=== PATIENT | male | born 1995 | race Caucasian/White ===

== ENCOUNTER 2019-12-24 11:12 | Emergency (ER) | payer BC, OTHER ==
[2019-12-24] MEDS ORDERED: NA CHLORIDE 0.9% 1,000 ML ONE (12:06)
--- OUTSIDE RECORDS SUMMARY | 2019-12-24 16:23 | XMS REPORT | Clinical Summary ---
:1995 Author Organization [facility] Address [address] [place] [address] Care Team Providers Name Role Phone Asked, No Pcp Primary Care Provider Unavailable Allergies Active Allergy Reactions Severity Noted Date Comments Sulfa (Sulfonamide Antibiotics) 7 Medications No known medications Active Problems Problem Noted Date Cervical strain, acute 07/01/2016 Family History Medical History Relation Name Comments Hypertension Father Heart disease Mother Hypertension Mother Relation Name Status Comments Father Mother Social History Tobacco Use Types Packs/Day Years Used Date Never Smoker Tobacco Cessation: Counseling Given: No Alcohol Use Drinks/Week oz/Week Comments No Sex Assigned at Date Recorded Not on file Job Start Date Occupation Industry Not on file Not on file Not on file Travel History Travel Start Travel End No recent travel history available. Last Filed Vital Signs Not on file Plan of Treatment Health Maintenance Due Date Last Done Comments INFLUENZA VACCINE 12/15/2019 Results Not on fileafter 12/23/2018 Advance Directives For more information, please contact: [phone] Type Date Recorded Patient Pick Remover Explanati on Advance Directives, Living Will and Medical Power of Associate Account Manager
--- NOTE | 2019-12-24 16:24 | RAD REPORT ---
EXAM DESCRIPTION: RAD - Chest Pa And Lat (2 Views) - 12/24/2019 2:36 pm CLINICAL HISTORY: Chest pain, abdominal pain and vomiting COMPARISON: Two view chest September 2015 TECHNIQUE: Frontal and lateral views of the chest were obtained. FINDINGS: The lungs are clear. Heart size is normal and central vasculature is within normal limit s. No pleural effusion or pneumothorax seen. No acute bony finding noted. No aortic abnormality. No significant interval change. IMPRESSION: No acute cardiopulmonary process.
[2019-12-24 20:39] LABS: Potassium 4.2 mmol/L (3.5-5.1); Sodium Level 144 mmol/L (136-145)
[2019-12-24 20:40] LABS: ALT/SGPT 29 U/L (12-78); AST/SGOT 11 U/L (15-37); Albumin 4.4 g/dL (3.4-5.0); Alkaline Phosphatase 92 U/L (45-117); BUN Blood Urea Nitrogen 11 mg/dL (7-18); Bicarbonate 28 mmol/L (21-32); Bilirubin Direct 0.2 mg/dL (0-0.2); Bilirubin Total 0.6 mg/dL (0.2-1.0); Glucose Level 94 mg/dL (74-106); Protein, Total 7.9 g/dL (6.4-8.2)
[2019-12-24 20:41] LABS: Lipase 64 U/L (73-393)
[2019-12-24 20:42] LABS: Absolute Lymphocytes (CBC) 1.2 K/uL (0.7-4.9); Basophils % 0.4 % (0-1.3); Hematocrit 43.9 % (39.6-49.0); Lymphocytes % 21.9 % (15.3-44.8); MPV 11.2 fL (7.6-11.3); RBC Red Blood Cell Count 4.85 M/uL (4.33-5.43)
--- NOTE | 2019-12-25 07:28 | EDPHYS ---
Physician Documentation [facility] Name: Jairo eNwman Age: 24 yrs Sex: Male : 1995 Arrival Date: 12/24/2019 Time: 11:16 Bed 20 Private MD: ED Physician Daryl Chandler HPI: 12/23 11:40 This 24 yrs old Male presents to ER via Ambulatory with complaints of pm1 Vomiting, RUQ Pain, Shortness Of Breath. 11:40 The patient presents to the emergency department with vomiting, 1 times since the onset pm1 of symptoms, 1 times today, described as blood streaked, abdominal pain, of the right upper quadrant, described as crampy, and does not radiate. Onset: The symptoms/episode began/occurred 2 week(s) ago. Possible causes: unknown. The symptoms are aggravated by Exercise The symptoms are alleviated by Rest. Associated signs and symptoms: Pertinent positives: abdominal pain, Pertinent negatives: fever, Chest pain. Severity of symptoms: in the emergency department the symptoms have resolved Pain is currently a 0 / 10. The patient has not recently seen a physician. Patient has been working out with running and walking at when he is running at the 2 mile magy he gets RUQ pain with shortness of breath. This has been occurring for the past 2 weeks with his work outs daily. Patient currently does not have any shortness of breath or pain. What brought him in today is he was playing basketball and had 1 episode of vomiting with some streak of blood in it. Historical: - Allergies: 11:28 Sulfa (Sulfonamide Antibiotics); ll1 - PMHx: 11:28 Asthma; ll1 - PSHx: 11:28 shoulder surgery, spinal injections; EGD/colonoscopy; ll1 - Immunization history:: Flu vaccine is up to date. - Social history:: Smoking status: Patient denies any tobacco usage or history of. Patient/guardian denies using alcohol, street drugs, tobacco products. ROS: 11:40 Constitutional: Negative for fever, chills, and weight loss, Neck: Negative for injury, pm1 pain, and swelling, Cardiovascular: Negative for chest pain, palpitations, and edema. 11:40 Back: Negative for injury and pain, : Negative for injury, bleeding, discharge, and swelling, MS/Extremity: Negative for injury and deformity, Skin: Negative for injury, rash, and discoloration, Neuro: Negative for headache, weakness, numbness, tingling, and seizure. 11:40 Respiratory: Positive for shortness of breath, Negative for cough, sputum production, wheezing. 11:40 Abdomen/GI: Positive for abdominal pain, nausea and vomiting, of the right upper quadrant, Negative for diarrhea, constipation. Exam: 11:40 Constitutional: This is a well developed, well nourished patient who is awake, alert, pm1 and in no acute distress. Head/Face: Normocephalic, atraumatic. Neck: Trachea midline, no thyromegaly or masses palpated, and no cervical lymphadenopathy. Supple, full range of motion without nuchal rigidity, or vertebral point tenderness. No Meningismus. Cardiovascular: Regular rate and rhythm with a normal S1 and S2. No gallops, murmurs, or rubs. Normal PMI, no JVD. No pulse deficits. Respiratory: Lungs have equal breath sounds bilaterally, clear to auscultation and percussion. No rales, rhonchi or wheezes noted. No increased work of breathing, no retractions or nasal flaring. 11:40 Back: No spinal tenderness. No costovertebral tenderness. Full range of motion. Skin: Warm, dry with normal turgor. Normal color with no rashes, no lesions, and no evidence of cellulitis. MS/ Extremity: Pulses equal, no cyanosis. Neurovascular intact. Full, normal range of motion. 11:40 Abdomen/GI: Inspection: abdomen appears normal, Palpation: soft, in all quadrants, mild abdominal tenderness, in the right upper quadrant, mass, is not appreciated, rebound tenderness, is not appreciated. 11:40 Neuro: Exam negative for acute changes, Orientation: is normal, Mentation: is normal, Motor: is normal, moves all fours, Gait: is steady, at a normal pace, without difficulty. Vital Signs: 11:24 BP 134 / 92; Pulse 64; Resp 17; Temp 98.5; Pulse Ox 96% ; Weight 99.79 kg; Height 5 ft. ll1 11 in. (180.34 cm); Pain 2/10; 12:02 BP 122 / 71; Pulse 55; Resp 18; Pulse Ox 98% ; Pain 0/10; ks7 13:18 BP 128 / 75; Pulse 62; Resp 18; Temp 98.3(O); Pulse Ox 98% on R/A; Pain 0/10; ks7 11:24 Body Mass Index 30.68 (99.79 kg, 180.34 cm) ll1 MDM: 11:29 Patient medically screened. pm1 13:06 Data reviewed: vital signs. Data interpreted: Pulse oximetry: on room air is 98 %. pm1 Interpretation: normal. Counseling: I had a detailed discussion with the patient and/or guardian regarding: the historical points, exam findings, and any diagnostic results supporting the discharge/admit diagnosis, lab results, radiology results, the need for outpatient follow up, to return to the emergency department if symptoms worsen or persist or if there are any questions or concerns that arise at home. 12/23 11:40 Order name: IV Saline Lock; Complete Time: 11:53 pm1 12/23 11:40 Order name: Labs collected and sent; Complete Time: 11:53 pm1 Administered Medications: Discontinued: NS 0.9% 1000 ml IV at 1000 ml once 12:06 Drug: NS 0.9% 1000 ml Route: IV; Rate: 1000 ml; Site: right antecubital; 1 Disposition: 14:13 Co-signature as Attending Physician, Daryl Chandler MD. rn Disposition: 12/24/19 13:08 Discharged to Home. Impression: Unspecified abdominal pain, Vomiting. - Condition is Stable. - Discharge Instructions: Abdominal Pain, Adult, Vomiting, Adult. - Prescriptions for Zofran ODT 4 mg Oral tablet,disintegrating - place 1 tablet by TRANSLINGUAL route every 8 hours As needed; 10 tablet. - Medication Reconciliation Form, Thank You Letter, Antibiotic Education, Prescription Opioid Use form. - Follow up: Emergency Department; When: As needed; Reason: Worsening of condition. Follow up: Private Physician; When: 2 - 3 days; Reason: Recheck today's complaints, Continuance of care, Re-evaluation by your physician. - Problem is new. - Symptoms have improved. Signatures: Daryl Chandler MD MD rn Marinas, Patrick, PRODUCER ARBORIST MANAGER PRODUCER ARBORIST MANAGER pm1 Simi Cuadra RN RN ll1 Merly Taylor RN RN ks7 Corrections: (The following items were deleted from the chart) 13:09 13:08 12/24/2019 13:08 Discharged to Home. Impression: Unspecified abdominal pain. pm1 Condition is Stable. Forms are Medication Reconciliation Form, Thank You Letter, Antibiotic Education, Prescription Opioid Use. Follow up: Emergency Department; When: As needed; Reason: Worsening of condition. Follow up: Private Physician; When: 2 - 3 days; Reason: Recheck today's complaints, Continuance of care, Re-evaluation by your physician. Problem is new. Symptoms have improved. pm1 13:25 13:09 12/24/2019 13:08 Discharged to Home. Impression: Unspecified abdominal pain; ks7 Vomiting. Condition is Stable. Discharge Instructions: Abdominal Pain, Adult, Shortness of Breath, Vomiting, Adult. Forms are Medication Reconciliation Form, Thank You Letter, Antibiotic Education, Prescription Opioid Use. Follow up: Emergency Department; When: As needed; Reason: Worsening of condition. Follow up: Private Physician; When: 2 - 3 days; Reason: Recheck today's complaints, Continuance of care, Re-evaluation by your physician. Problem is new. Symptoms have improved. pm1
--- NOTE | 2019-12-25 07:28 | ER ---
Nurse's Notes [facility] Name: Jairo Newman Age: 24 yrs Sex: Male : 1995 Arrival Date: 12/24/2019 Time: 11:16 Bed 20 Private MD: Diagnosis: Unspecified abdominal pain;Vomiting Presentation: 12/23 11:24 Chief complaint: Patient states: Int. RUQ abd pain with working out for the past 2 ll1 weeks. Has to stop working out for a bit for the pain to resolve. Noticed he couldn't take a full deep breathe yesterday, slight SOB. Was working out today, had the pain, then vomited. Vomitus had bright red blood in it, so he came to get checked. Coronavirus screen: Client denies travel out of the [place] in the last 14 days. At this time, the client does not indicate any symptoms associated with coronavirus-19. Ebola Screen: Patient denies travel to an Ebola-affected area in the 21 days before illness onset. Initial Sepsis Screen: Does the patient meet any 2 criteria? No. Patient's initial sepsis screen is negative. Risk Assessment: Do you want to hurt yourself or someone else? Patient reports no desire to harm self or others. Onset of symptoms was December 10, 2019. 11:24 Method Of Arrival: Ambulatory ll1 11:24 Acuity: SHARRI 3 ll1 12:01 Initial Sepsis Screen: Does the patient have a suspected source of infection? No. ll1 Patient's initial sepsis screen is negative. Historical: - Allergies: 11:28 Sulfa (Sulfonamide Antibiotics); ll1 - PMHx: 11:28 Asthma; ll1 - PSHx: 11:28 shoulder surgery, spinal injections; EGD/colonoscopy; ll1 - Immunization history:: Flu vaccine is up to date. - Social history:: Smoking status: Patient denies any tobacco usage or history of. Patient/guardian denies using alcohol, street drugs, tobacco products. Screenin:01 Abuse screen: Denies threats or abuse. Nutritional screening: No deficits noted. ll1 Tuberculosis screening: No symptoms or risk factors identified. Fall Risk IV access (20 points). Total Orozco Fall Scale indicates No Risk (0-24 pts). Assessment: 11:45 General: Appears in no apparent distress. Behavior is calm, cooperative. General: pain ll1 to RUQ/R flank during working out for the past 2 weeks. Resolves with rest. N/V with blood in it started this am.. Pain: Denies pain. Neuro: No deficits noted. Cardiovascular: No deficits noted. Respiratory: Reports cannot take a full breath, slight SOB. Airway is patent Trachea midline Respiratory effort is even, unlabored, Respiratory pattern is regular, symmetrical, Breath sounds are clear bilaterally. Onset: The symptoms/episode began/occurred yesterday. GI: Abdomen is flat, Bowel sounds present X 4 quads. Abd is soft and non tender X 4 quads. Reports upper abdominal pain, nausea, vomiting, bright red blood in vomitus this am. : No deficits noted. Musculoskeletal: Circulation, motion, and sensation intact. Capillary refill < 3 seconds, Range of motion: intact in all extremities, Reports pain in R flank/RUQ. 12:02 Pain: Denies pain. ks7 12:08 Reassessment: Patient and/or family updated on plan of care and expected duration. Pain ks7 level reassessed. Patient is alert, oriented x 3, equal unlabored respirations, skin warm/dry/pink. Vital Signs: 11:24 BP 134 / 92; Pulse 64; Resp 17; Temp 98.5; Pulse Ox 96% ; Weight 99.79 kg; Height 5 ft. ll1 11 in. (180.34 cm); Pain 2/10; 12:02 BP 122 / 71; Pulse 55; Resp 18; Pulse Ox 98% ; Pain 0/10; ks7 13:18 BP 128 / 75; Pulse 62; Resp 18; Temp 98.3(O); Pulse Ox 98% on R/A; Pain 0/10; ks7 11:24 Body Mass Index 30.68 (99.79 kg, 180.34 cm) ll1 ED Course: 11:16 Patient arrived in ED. ds1 11:27 Triage completed. ll1 11:28 Malachi Peguero NP is PHCP. pm1 11:28 Daryl Chandler MD is Attending Physician. pm1 11:28 Arm band placed on Patient placed in an exam room, on a stretcher. ll1 11:45 Inserted saline lock: 20 gauge in right antecubital area, using aseptic technique. ll1 Blood collected. 12:01 Patient has correct armband on for positive identification. Bed in low position. Call ll1 light in reach. Side rails up X 1. Pulse ox on. NIBP on. 12:05 Merly Taylor, RN is Primary Nurse. ks7 12:05 Patient moved back from CT. ks7 12:05 Report received from Bridgett COOK. ks7 13:20 Resting quietly. Nurse Practitioner and/or Physician City Weighmaster to see patient. in room, ks7 discussed dc instructions with pt and ct results. 13:20 No provider procedures requiring assistance completed. IV discontinued, intact, ks7 bleeding controlled, No redness/swelling at site. Pressure dressing applied. Administered Medications: Discontinued: NS 0.9% 1000 ml IV at 1000 ml once 12:06 Drug: NS 0.9% 1000 ml Route: IV; Rate: 1000 ml; Site: right antecubital; ll1 Outcome: 13:08 Discharge ordered by . pm1 13:20 Discharged to home ambulatory. ks7 13:20 Condition: good 13:20 Discharge instructions given to patient, Instructed on discharge instructions, medication usage, Demonstrated understanding of instructions, medications, Prescriptions given X 1. 13:25 Patient left the ED. ks7 Signatures: Tricia Bonilla ds1 Malachi Peguero NP EXTRACTION SUPERVISOR pm1 Simi Cuadra RN RN ll1 Merly Taylor, JOEY RN ks7
[2019-12-25 09:10] VITALS: O2SAT 98
[2019-12-25 09:12] VITALS: BP 128/75; TEMP 98.3
--- NOTE | 2019-12-25 12:39 | RAD REPORT ---
EXAM DESCRIPTION: CTAbdomen Pelvis W Contrast - 12/24/2019 2:38 pm CLINICAL HISTORY: Abdominal pain. . COMPARISON: No comparisons TECHNIQUE: Biphasic CT imaging of the abdomen and pelvis was performed with 100 ml non-ionic IV cont rast. All CT scans are performed using dose optimization technique as appropriate and may include automated exposure control or mA/KV adjustment according to patient size. FINDINGS: The lung bases are clear. The liver, spleen, pancreas, adrenal glands and kidneys are within normal limits. No bowel obstruction, free air, free fluid or abscess. The appendix is normal. No evidence of signi ficant lymphadenopathy. No suspicious bony findings. IMPRESSION: No acute intra-abdominal or pelvic finding.
== END 2019-12-24 13:25 | disposition home or self-care (01) ==
LOC: ER 11:12
DX: R11.10 Vomiting, unspecified (principal); Z88.2 Allergy status to sulfonamides
CPT/HCPCS: 85025; 80048; 36415; 80076; 83690; 74177; 71046; 99284; Q9967; J7030

== ENCOUNTER 2021-04-15 11:48 | Emergency (ER) | payer BC ==
--- OUTSIDE RECORDS SUMMARY | 2021-04-15 11:51 | XMS REPORT | Continuity of Care Document ---
:1995 Author Organization [facility] t Address [address] [place] [address] Care Team Providers Name Role Phone Unavailable Unavailable Unavailable Problems This patient has no known problems. Allergies, Adverse Reactions, Alerts This patient has no known allergies or adverse reactions. Medications This patient has no known medications. Procedures This patient has no known procedures. Encounters Start End Encounter Admission Attending Care Care Encounter Source Date/Time Date/Time Type Type Clinicians Facility Department ID 2020-02-19 2020-02-19 Emergency E [id number] 08:34:00 08:34:00 Results This patient has no known results.
--- NOTE | 2021-04-15 13:41 | RAD REPORT ---
EXAM DESCRIPTION: CT - Abdomen Pelvis W Contrast - 04/15/2021 1:09 pm CLINICAL HISTORY: Abdominal pain COMPARISON: 2019 TECHNIQUE: Computed axial tomography of the abdomen pelvis was obtained. 100 cc Isovue-300 was admin istered intravenously. Oral contrast was not requested which limits evaluation of bowel. All CT scans are performed using dose optimization technique as appropriate and may include automated exposure control or mA/KV adjustment according to patient size. FINDINGS: The liver, pancreas, adrenal and kidneys appear unremarkable. Spleen is upper limits joan l size with normal density There is no evidence of diverticulitis. Normal appendix Small umbilical hernia. Tiny left inguinal hernia IMPRESSION: No acute abnormality is displayed.
[2021-04-15 13:42] LABS: Absolute Lymphocytes (CBC) 1.4 K/uL (0.7-4.9); Basophils % 0.6 % (0-1.3); Hematocrit 50.3 % (39.6-49.0); Lymphocytes % 18.9 % (15.3-44.8); MPV 9.6 fL (7.6-11.3)
[2021-04-15 14:03] LABS: ALT/SGPT 59 U/L (12-78); AST/SGOT 24 U/L (15-37); Albumin 4.4 g/dL (3.4-5.0); Alkaline Phosphatase 85 U/L (45-117); BUN Blood Urea Nitrogen 10 mg/dL (7-18); Bicarbonate 30 mmol/L (21-32); Bilirubin Direct 0.1 mg/dL (0-0.2); Bilirubin Total 0.8 mg/dL (0.2-1.0); Glucose Level 91 mg/dL (74-106); Lipase 49 U/L (73-393); Potassium 3.9 mmol/L (3.5-5.1); Protein, Total 8.4 g/dL (6.4-8.2); Sodium Level 139 mmol/L (136-145)
[2021-04-15] MEDS ORDERED: METOCLOPRAMIDE 10 MG/2mL INJ ONE (15:45)
[2021-04-15] MEDS ORDERED: NA CHLORIDE 0.9% 1,000 ML ONE (15:45)
[2021-04-15] MEDS ORDERED: KETOROLAC 30 MG/ML INJ ONE (16:02)
--- NOTE | 2021-04-15 16:10 | ER ---
Nurse's Notes [facility] Name: Jairo Newman Age: 25 yrs Sex: Male : 1995 Arrival Date: 04/15/2021 Time: 11:51 Bed 16 Private MD: Sp Tavares T Diagnosis: Lower abdominal pain, unspecified Presentation: 04/15 12:40 Chief complaint: Patient states: Was sent from DR Tavares's office due to RLQ vg1 pain/tenderness. Pt states difficulty breathing, cough, NV that began yesterday. Coronavirus screen: Vaccine status: Patient reports being unvaccinated. Client denies travel out of the [place] in the last 14 days. Ebola Screen: Patient negative for fever greater than or equal to 101.5 degrees Fahrenheit, and additional compatible Ebola Virus Disease symptoms. Initial Sepsis Screen: Does the patient meet any 2 criteria? No. Patient's initial sepsis screen is negative. Does the patient have a suspected source of infection? No. Patient's initial sepsis screen is negative. Risk Assessment: Do you want to hurt yourself or someone else? Patient reports no desire to harm self or others. Onset of symptoms was April 14, 2021. 12:40 Method Of Arrival: Ambulatory vg1 12:40 Acuity: SHARRI 3 vg1 Triage Assessment: 12:43 General: Appears in no apparent distress. uncomfortable, Behavior is calm, cooperative. vg1 Pain: Complains of pain in right lower quadrant Pain currently is 6 out of 10 on a pain scale. Historical: - Allergies: 12:42 Sulfa (Sulfonamide Antibiotics); vg1 - Home Meds: 12:42 None [Active]; vg1 - PMHx: 12:42 Asthma; vg1 - PSHx: 12:43 Hernia Repair; Orchiopexy; vg1 - Immunization history:: Client reports having NOT received the Covid vaccine. - Social history:: Smoking status: Patient denies any tobacco usage or history of. Screenin:03 Abuse screen: Denies threats or abuse. Denies injuries from another. Nutritional jh5 screening: No deficits noted. Tuberculosis screening: No symptoms or risk factors identified. Fall Risk None identified. Assessment: 14:22 General: Appears in no apparent distress. comfortable, well groomed, Behavior is calm, jh5 cooperative, appropriate for age. Pain: Complains of pain in abdomen. Neuro: Level of Consciousness is awake, alert, obeys commands, Oriented to person, place, time, situation, Appropriate for age Speech is normal. Cardiovascular: No deficits noted. Capillary refill < 3 seconds Patient's skin is warm and dry. Respiratory: No deficits noted. Airway is patent Trachea midline Respiratory effort is even, unlabored, Respiratory pattern is regular, symmetrical. GI: Abdomen is flat. Vital Signs: 12:40 BP 127 / 88; Pulse 75; Resp 18; Temp 98.3(O); Pulse Ox 100% ; Weight 108.86 kg; Height vg1 5 ft. 11 in. (180.34 cm); Pain 6/10; 14:24 BP 131 / 84; Pulse 72; Resp 16; Pulse Ox 100% ; jh5 12:40 Body Mass Index 33.47 (108.86 kg, 180.34 cm) vg1 ED Course: 11:51 Patient arrived in ED. as 11:51 Sp Tavares MD is Private Physician. as 12:31 [facility] Lim [facility] 12:31 Meng James MD is Attending Physician. [facility] 12:42 Triage completed. vg1 12:43 Arm band placed on. vg1 12:57 Shanell Connolly, JOEY is Primary Nurse. 5 13:00 Inserted saline lock: 20 gauge in left antecubital area, using aseptic technique. vg1 ,using aseptic technique. at the bedside Blood collected. 13:09 CT Abd/Pelvis - IV Contrast Only In Process Unspecified. EDMS 15:03 Patient has correct armband on for positive identification. Bed in low position. Call [facility] light in reach. Side rails up X 1. 15:03 No provider procedures requiring assistance completed. jh5 16:09 Sp Tavares MD is Referral Physician. [facility] Administered Medications: 15:48 Drug: NS 0.9% 1000 ml Route: IV; Rate: 1 bolus; Site: left antecubital; [facility] 15:48 Drug: Reglan (metoCLOPramide) 20 mg Route: IVP; Site: left antecubital; [facility] 16:16 Not Given (Patient Refused): Ketorolac 30 mg IVP once [facility] Outcome: 16:10 Discharge ordered by . stacy 16:18 Patient left the ED. jh5 Signatures: Dispatcher [employer] EDMS Christian Lim PA PA jmm Martinez, Amelia as Garcia, Victoria, RN RN vg1 Shanell Connolly RN RN jh5
--- NOTE | 2021-04-15 16:10 | EDPHYS ---
Physician Documentation [facility] Name: Jairo Newman Age: 25 yrs Sex: Male : 1995 Arrival Date: 04/15/2021 Time: 11:51 Bed 16 Private MD: Sp Tavares T ED Physician Meng James HPI: 04/15 16:07 This 25 yrs old Male presents to ER via Ambulatory with complaints of sent by stacy Turner r/o appendicitis. 16:07 The patient presents with abdominal pain. Onset: The symptoms/episode began/occurred jmm gradually, 1 day(s) ago. The symptoms do not radiate. Associated signs and symptoms: Pertinent positives: nausea and vomiting. The symptoms are described as achy, sharp. Modifying factors: The symptoms are alleviated by nothing, the symptoms are aggravated by nothing. Historical: - Allergies: 12:42 Sulfa (Sulfonamide Antibiotics); vg1 - Home Meds: 12:42 None [Active]; vg1 - PMHx: 12:42 Asthma; vg1 - PSHx: 12:43 Hernia Repair; Orchiopexy; vg1 - Immunization history:: Client reports having NOT received the Covid vaccine. - Social history:: Smoking status: Patient denies any tobacco usage or history of. ROS: 16:07 Constitutional: Negative for fever, chills, and weight loss, Cardiovascular: Negative jmm for chest pain, palpitations, and edema, Respiratory: Negative for shortness of breath, cough, wheezing, and pleuritic chest pain. 16:07 Abdomen/GI: Positive for abdominal pain, nausea and vomiting. 16:07 All other systems are negative. Exam: 16:07 Constitutional: This is a well developed, well nourished patient who is awake, alert, jmm and in no acute distress. Head/Face: atraumatic. Eyes: EOMI, no conjunctival erythema appreciated ENT: Moist Mucus Membranes Neck: Trachea midline, Supple Chest/axilla: Normal chest wall appearance and motion. Cardiovascular: Regular rate and rhythm. No edema appreciated Respiratory: Normal respirations, no respiratory distress appreciated 16:07 Skin: General appearance color normal MS/ Extremity: Moves all extremities, no obvious deformities appreciated, no edema noted to the lower extremities Neuro: Awake and alert, normal gait Psych: Behavior is normal, Mood is normal, Patient is cooperative and pleasant 16:07 Abdomen/GI: Inspection: abdomen appears normal, Bowel sounds: normal, Palpation: soft, mild abdominal tenderness, in the right lower quadrant. Vital Signs: 12:40 BP 127 / 88; Pulse 75; Resp 18; Temp 98.3(O); Pulse Ox 100% ; Weight 108.86 kg; Height vg1 5 ft. 11 in. (180.34 cm); Pain 6/10; 14:24 BP 131 / 84; Pulse 72; Resp 16; Pulse Ox 100% ; jh5 12:40 Body Mass Index 33.47 (108.86 kg, 180.34 cm) vg1 MDM: 12:54 Patient medically screened. aleja 16:09 Data reviewed: vital signs, nurses notes. Counseling: I had a detailed discussion with [facility] the patient and/or guardian regarding: the historical points, exam findings, and any diagnostic results supporting the discharge/admit diagnosis, lab results, radiology results, the need for outpatient follow up, to return to the emergency department if symptoms worsen or persist or if there are any questions or concerns that arise at home. 12 13:29 Order name: Basic Metabolic Panel; Complete Time: 14:09 [facility] 04/15 13:29 Order name: CBC with Diff; Complete Time: 13:46 [facility] 04/15 12:32 Order name: CT Abd/Pelvis - IV Contrast Only; Complete Time: 13:42 [facility] 04/15 13:29 Order name: Hepatic Function; Complete Time: 14:09 [facility] 04/15 13:29 Order name: Lipase; Complete Time: 14:09 [facility] 04/15 13:29 Order name: IV Saline Lock; Complete Time: 13:33 [facility] 04/15 13:29 Order name: Labs collected and sent; Complete Time: 13:33 [facility] Administered Medications: 15:48 Drug: NS 0.9% 1000 ml Route: IV; Rate: 1 bolus; Site: left antecubital; [facility] 15:48 Drug: Reglan (metoCLOPramide) 20 mg Route: IVP; Site: left antecubital; [facility] 16:16 Not Given (Patient Refused): Ketorolac 30 mg IVP once [facility] Disposition: 04/16 09:15 Co-signature as Attending Physician, Meng James MD I agree with the assessment and aleja plan of care. Disposition Summary: 04/15/21 16:10 Discharge Ordered Location: Home [facility] Condition: Stable jm Diagnosis - Lower abdominal pain, unspecified jmm Followup: [facility] - With: Sp Tavares MD - When: Tomorrow - Reason: Recheck today's complaints, Continuance of care, Re-evaluation by your physician Discharge Instructions: - Discharge Summary Sheet [facility] - Abdominal Pain, Adult jm Forms: - Medication Reconciliation Form [facility] - Thank You Letter [facility] - Antibiotic Education [facility] - Prescription Opioid Use [facility] Prescriptions: - ondansetron 4 mg Oral tablet,disintegrating - place 1 tablet by TRANSLINGUAL route every 8 hours As needed; 20 tablet; [facility] Refills: 0, Product Selection Permitted Signatures: Dispatcher [employer] Meng Lujan MD MD cha Mickail, Joel, PA PA jmm Garcia, Victoria, RN RN vg1 Shanell Connolly RN RN jh5
[2021-04-15 16:26] VITALS: BP 131/84; O2SAT 100
[2021-04-15 16:28] VITALS: TEMP 98.3
== END 2021-04-15 16:18 | disposition home or self-care (01) ==
LOC: ER 11:48
DX: R10.30 Lower abdominal pain, unspecified (principal); Z88.2 Allergy status to sulfonamides
CPT/HCPCS: 85025; 80048; 36415; 80076; 83690; 74177; 96374; 99284; Q9967; J2765; J7030

== ENCOUNTER 2025-03-05 06:00 | Emergency (ER) | payer BC, OTHER ==
[2025-03-05] MEDS ORDERED: NA CHLORIDE 0.9% 1,000 ML ONE (06:36)
[2025-03-05 06:50] LABS: Absolute Lymphocytes (CBC) 1.2 K/uL (0.7-4.9); Hematocrit 45.1 % (39.6-49.0); Hemoglobin 15.2 g/dL (13.6-17.9); MCH 30.6 pg (27.0-35.0); MCHC 33.6 g/dL (32.0-36.0); MCV 91.1 fL (80-100); MPV 9.8 fL (7.6-11.3); Nucleated RBC Absolute Count 0.0 (0-0); Nucleated Red Blood Cells % 0.2 % (0-0); RBC Red Blood Cell Count 4.95 M/uL (4.33-5.43); White Blood Count 5.20 thou/uL (4.3-10.9)
[2025-03-05 07:13] LABS: ALT/SGPT 121.0 U/L (16-61); AST/SGOT 30.0 U/L (15-37); Albumin 3.6 g/dL (3.4-5.0); Albumin/Globulin Ratio 1.0 (1.1-1.8); Alkaline Phosphatase 94.0 U/L (45-117); Anion Gap 8.4 mEq/L (5.0-15.0); BUN Blood Urea Nitrogen 13.0 mg/dL (7-18); Globulin 3.7 g/dL (2.3-3.5); Glucose Level 112.0 mg/dL (74-106); Lipase 24.0 U/L (13-75); NT PRO-BNP 23.0 pg/mL (<125); Potassium 4.4 mEq/L (3.5-5.1); Troponin High Sensitivity 3.9 pg/mL (<58.9)
[2025-03-05 07:17] LABS: Thyroid Stimulating Hormone 2.26 uIU/mL (0.358-3.740)
--- NOTE | 2025-03-05 07:28 | RAD REPORT ---
EXAM: Chest Abdomen Pelvis W Cont CLINICAL INDICATION: Chest and abdominal pain TECHNIQUE: CT chest, abdomen and pelvis was performed, with 100 cc Isovue-300 IV contrast, as per de partment protocol. Axial, sagittal and coronal reconstructions were obtained. One or more of the following dose reduction techniques were used: Automated exposure control, adjustment of the mA and/o r kV according to the patient size, and/or iterative reconstruction. Unless otherwise specified, incidental findings do not require dedicated imaging follow-up. [id number]. Oral contrast not given. This limits evaluation of the bowel. COMPARISON: CT abdomen 2019 FINDINGS: The lungs are clear. No mediastinal or hilar lymphadenopathy. No pleural effusion.. No pericardial effusion Borderline splenomegaly. The pancreas, liver, adrenals and kidneys unremarkable Normal appendix There is no evidence of diverticulitis. Moderate amount stool throughout the colon. Very small left inguinal hernia. Tiny umbilical hernia IMPRESSION: Borderline splenomegaly Moderate amount of stool throughout the colon
--- NOTE | 2025-03-05 08:22 | ER ---
Nurse's Notes [facility] Name: Jairo Newman Age: 29 yrs Sex: Male : 1995 Arrival Date: 03/05/2025 Time: 06:00 Bed 7 Private MD: Diagnosis: Chest pain, unspecified;Elevated blood-pressure reading, without diagnosis of hypertension;Abdominal pain, unspecified Presentation: 03/05 06:31 Chief complaint: Patient states: CP AND ABD FOR 3 DAYS. HAS A HX OF FOOD ALLERGIES AND jj7 CHRONIC ABD PAIN. STARTED AFTER EATING SOMETHING HE WAS ALLERGIC TOO. Coronavirus screen: At this time, the client does not indicate any symptoms associated with coronavirus-19. Ebola Screen: No symptoms or risks identified at this time. Initial Sepsis Screen: Does the patient meet any 2 criteria? No. Patient's initial sepsis screen is negative. Does the patient have a suspected source of infection? No. Patient's initial sepsis screen is negative. Risk Assessment: Do you want to hurt yourself or someone else? Patient reports no desire to harm self or others. Note TOOK MOTRIN AT 5A. Onset of symptoms was March 02, 2025. 06:31 Method Of Arrival: Ambulatory [facility] 06:31 Acuity: SHARRI 3 jj7 Triage Assessment: 06:34 General: Appears in no apparent distress. comfortable, Behavior is calm, cooperative, jj7 appropriate for age. Pain: Complains of pain in chest and abdomen. Cardiovascular: Reports chest pain. GI: Reports upper abdominal pain, nausea, vomiting. Historical: - Allergies: 06:34 Sulfa (Sulfonamide Antibiotics); jj7 - PMHx: 06:34 Asthma; jj7 - PSHx: 06:34 hernia repair; orchiopexy; jj7 - Immunization history:: Adult Immunizations up to date. - Infectious Disease History:: Denies. - Social history:: Smoking status: Patient denies any tobacco usage or history of. Patient/guardian denies using alcohol, street drugs, IV drugs. - Family history:: not pertinent. Screenin:45 [facility] ED Fall Risk Assessment (Adult) History of falling in the last 3 months, vc1 including since admission No falls in past 3 months (0 pts) Confusion or Disorientation No (0 pts) Intoxicated or Sedated No (0 pts) Impaired Gait No (0 pts) Mobility Assist Device Used No (0 pt) Altered Elimination No (0 pt) Score/Fall Risk Level 0 - 2 = Low Risk Oriented to surroundings, Maintained a safe environment, Educated pt \T\ family on fall prevention, incl call for assistance when getting out of bed, Assessed \T\ reinforced patient's understanding of fall precautions, Hourly rounding (assess needs \T\ fall precautionary measures) done. Abuse screen: Denies threats or abuse. Nutritional screening: No deficits noted. Tuberculosis screening: No symptoms or risk factors identified. Assessment: 06:46 General: Appears in no apparent distress. uncomfortable, well groomed, well developed, vc1 well nourished, Behavior is calm, cooperative, appropriate for age. Pain: Complains of pain in abdomen and chest Pain does not radiate. Pain began 2-3 days ago. Also complains of shortness of breath. Neuro: Level of Consciousness is awake, alert, obeys commands, Oriented to person, place, time, situation, Appropriate for age. Cardiovascular: Heart tones S1 S2 present Capillary refill < 3 seconds Patient's skin is warm and dry. Respiratory: Airway is patent Respiratory effort is even, unlabored, Respiratory pattern is regular, symmetrical, Breath sounds are clear bilaterally. Respiratory: Reports shortness of breath. GI: Abdomen is round non-distended, Reports upper abdominal pain. : No deficits noted. No signs and/or symptoms were reported regarding the genitourinary system. EENT: No deficits noted. No signs and/or symptoms were reported regarding the EENT system. Derm: Skin is intact, is healthy with good turgor, Skin is dry, Skin is normal, Skin temperature is warm. Musculoskeletal: Circulation, motion, and sensation intact. Range of motion: intact in all extremities. 07:28 Reassessment: Patient and/or family updated on plan of care and expected duration. Pain ap3 level reassessed. Patient is alert, oriented x 3, equal unlabored respirations, skin warm/dry/pink. General: Appears in no apparent distress. Behavior is calm, cooperative, appropriate for age. Pain: Complains of pain in chest and abdomen. Neuro: Level of Consciousness is awake, alert, obeys commands, Oriented to person, place, time, situation, Appropriate for age. Cardiovascular: Patient's skin is warm and dry. Respiratory: Reports shortness of breath Airway is patent Respiratory effort is even, unlabored, Respiratory pattern is regular, symmetrical. GI: Abdomen is non-distended, Reports upper abdominal pain. Vital Signs: 06:31 BP 143 / 95; Pulse 73; Resp 18; Temp 98.7; Pulse Ox 100% ; Weight 115.67 kg; Height 6 jj7 ft. 0 in. ; Pain 6/10; 06:31 Body Mass Index 34.58 (115.67 kg, 182.88 cm) 7 06:31 Pain Scale: Adult [facility] Camacho Coma Score: 06:45 Eye Response: spontaneous(4). Motor Response: obeys commands(6). Verbal Response: sp4 oriented(5). Total: 15. ED Course: 06:02 Patient arrived in ED. mr 06:34 Triage completed. jj7 06:34 Arm band placed on right wrist. Patient placed in an exam room, on a stretcher. jj7 06:42 Apollo Owusu MD is Attending Physician. sp4 06:45 Sahara Chow, RN is Primary Nurse. vc1 06:46 Patient has correct armband on for positive identification. Bed in low position. Call vc1 light in reach. Provided Education on: Plan of care. Pulse ox on. NIBP on. 06:47 Inserted saline lock: 20 gauge in left antecubital area, using aseptic technique. Blood vc1 collected. Flushed with 10 mL NS. Patient maintains SpO2 saturation greater than 95% on room air. 07:04 CT Chest, Abdomen, Pelvis - W/Contrast In Process Unspecified. EDMS 07:24 Attending Physician role handed off by Apollo Owusu MD ms3 07:24 Karson Lainez DO is Attending Physician. ms3 07:28 EKG done, by ED staff, reviewed by Karson Lainez DO. ap3 08:21 Gilberto Johnson MD is Referral Physician. ms3 08:32 No provider procedures requiring assistance completed. IV discontinued, intact, ap3 bleeding controlled, No redness/swelling at site. Pressure dressing applied. Administered Medications: 06:48 Drug: NS 0.9% IV 1000 ml IV at 1 bolus Per protocol; to be given as a bolus over 60 vc1 minutes Route: IV; Rate: 1 bolus; Site: left antecubital; 08:32 Follow up: IV Status: Completed infusion; IV Intake: 1000ml ap3 Medication: 06:45 VIS not applicable for this client. vc1 Intake: 08:32 IV: 1000ml; Total: 1000ml. ap3 Outcome: 08:22 Discharge ordered by . ms3 08:32 Discharged to home ambulatory, ap3 08:32 Condition: good 08:32 Discharge instructions given to patient, Instructed on discharge instructions, follow up and referral plans. Demonstrated understanding of instructions, follow-up care, 08:32 Patient left the ED. ap3 Signatures: Dispatcher [employer] EDMS Muriel Ellington, Reg Reg mr Susi Brooks RN RN ap3 Karson Lainez DO DO ms3 Sahara Chow RN RN vc1 Miah Beltran RN RN jj7 Apollo Owusu MD MD sp4
--- NOTE | 2025-03-05 08:22 | EDPHYS ---
Physician Documentation [facility] Name: Jairo Newman Age: 29 yrs Sex: Male : 1995 Arrival Date: 03/05/2025 Time: 06:00 Bed 7 Private MD: ED Physician Karson Lainez HPI: 03/05 06:45 This 29 yrs old Male presents to ER via Ambulatory with complaints of Chest sp4 Pain, Abdominal Pain. 06:45 Patient presents with 5 days of chest pain shortness of breath with physical exertion sp4 associated with upper abdominal pain and vomiting. Historical: - Allergies: 06:34 Sulfa (Sulfonamide Antibiotics); jj7 - PMHx: 06:34 Asthma; jj7 - PSHx: 06:34 hernia repair; orchiopexy; jj7 - Immunization history:: Adult Immunizations up to date. - Infectious Disease History:: Denies. - Social history:: Smoking status: Patient denies any tobacco usage or history of. Patient/guardian denies using alcohol, street drugs, IV drugs. - Family history:: not pertinent. ROS: 06:45 Constitutional: Negative for fever, chills, and weight loss, positive chest pain, sp4 positive shortness of breath, positive abdominal pain, positive vomiting 06:45 All other systems are negative, Exam: 06:45 Constitutional: This is a well developed, well nourished patient who is awake, alert, sp4 and in no acute distress. Head/Face: Normocephalic, atraumatic. Eyes: Pupils equal round and reactive to light, extra-ocular motions intact. Lids and lashes normal. Conjunctiva and sclera are not injected. Cornea within normal limits. Periorbital areas with no swelling, redness, or edema. ENT: Nares patent. No nasal discharge, no septal abnormalities noted. Tympanic membranes are normal and external auditory canals are clear. Oropharynx with no redness, swelling, or masses, exudates, or evidence of obstruction, uvula midline. Mucous membranes moist. Neck: Trachea midline, no thyromegaly or masses palpated, and no cervical lymphadenopathy. Supple, full range of motion without nuchal rigidity, or vertebral point tenderness. Chest/axilla: Normal chest wall appearance and motion. Nontender with no deformity. No lesions are appreciated. Cardiovascular: Regular rate and rhythm with a normal S1 and S2. No gallops, murmurs, or rubs. No pulse deficits. Respiratory: Lungs have equal breath sounds bilaterally, clear to auscultation and percussion. No rales, rhonchi or wheezes noted. No increased work of breathing, no retractions or nasal flaring. Abdomen/GI: Soft, with normal bowel sounds. No distension or tympany. No guarding or rebound. No evidence of tenderness throughout. Back: No spinal tenderness. No costovertebral tenderness. Skin: Warm, dry with normal turgor. Normal color with no rashes, no lesions, and no evidence of cellulitis. MS/ Extremity: Pulses equal, no cyanosis. Neurovascular intact. Full, normal range of motion. Neuro: Awake and alert, GCS 15, oriented to person, place, time, and situation. Cranial nerves II-XII grossly intact. Motor strength 5/5 in all extremities. Sensory grossly intact. Psych: Awake, alert, with orientation to person, place and time. Behavior, mood, and affect are within normal limits 07:37 ECG was reviewed by the Attending Physician. ms3 Vital Signs: 06:31 BP 143 / 95; Pulse 73; Resp 18; Temp 98.7; Pulse Ox 100% ; Weight 115.67 kg; Height 6 jj7 ft. 0 in. ; Pain 6/10; 06:31 Body Mass Index 34.58 (115.67 kg, 182.88 cm) [facility] 06:31 Pain Scale: Adult jj7 Camacho Coma Score: 06:45 Eye Response: spontaneous(4). Motor Response: obeys commands(6). Verbal Response: sp4 oriented(5). Total: 15. MDM: 06:47 Differential diagnosis: acute pericarditis, chest wall pain, cholecystitis, sp4 Cholelithiasis costochondritis, esophagitis, gastritis, stable angina. HEART Score: History: Slightly Suspicious (0), ECG: Normal (0), Age: < or = 45 years (0), Risk Factors: No Risk Factors Known (0), Troponin: < or = 1 x Normal Limit (0), Total Score = 0. Data reviewed: vital signs, nurses notes. Transition of care: After a detail discussion of the patient's case, care is transferred to Karson Lainez DO. 07:00 Transition of care: Care assumed from Apollo Owusu MD. ms3 07:23 Medical Screening Exam initiated ms3 08:22 I considered the following discharge prescriptions or medication management in the ms3 emergency department Medications were administered in the Emergency Department. See MAR. Independent interpretation of the following test(s) in the Emergency Department EKG: See my EKG interpretation above. Counseling: I had a detailed discussion with the patient and/or guardian regarding the historical points, exam findings, and any diagnostic results supporting the discharge/admit diagnosis, lab results, radiology results, the need for outpatient follow up, to return to the emergency department if symptoms worsen or persist or if there are any questions or concerns that arise at home. Special discussion: Based on the patient's history, exam, and Dx evaluation, there is no indication for emergent intervention or inpatient Tx. It is understood by the patient/guardian that if the Sx's persist or worsen they need to return immediately for re-evaluation. ED course: Discussed labs and CT findings with patient. Patient to follow-up with cardiology in 2 to 3 days. All questions were answered. On reevaluation patient is alert and orient x 4, no apparent distress, nontoxic-appearing, speaking full sentences, abdomen benign. 03/05 06:22 Order name: CBC with Diff; Complete Time: 07:39 sp4 03/05 06:22 Order name: CMP; Complete Time: 07:39 sp4 03/05 06:22 Order name: Lipase; Complete Time: 07:39 sp4 03/05 06:23 Order name: NT PRO-BNP; Complete Time: 07:39 sp4 03/05 06:23 Order name: Troponin HS; Complete Time: 07:39 sp4 03/05 06:42 Order name: TSH; Complete Time: 07:39 sp4 03/05 06:42 Order name: T4 Free; Complete Time: 07:39 sp4 03/05 06:42 Order name: CT Chest, Abdomen, Pelvis - W/Contrast; Complete Time: 07:39 sp4 03/05 06:22 Order name: IV Saline Lock; Complete Time: 06:48 sp4 03/05 06:22 Order name: Labs collected and sent; Complete Time: 06:48 sp4 03/05 06:23 Order name: Cardiac monitoring; Complete Time: 07:28 sp4 03/05 06:23 Order name: EKG - Nurse/Tech; Complete Time: :28 sp4 EC:37 Rate is 66 beats/min. Rhythm is regular. QRS Helen is Normal. [place] interval is normal. QRS ms3 interval is normal. Clinical impression: Normal ECG. Interpreted by me. Reviewed by me. Administered Medications: 06:48 Drug: NS 0.9% IV 1000 ml IV at 1 bolus Per protocol; to be given as a bolus over 60 vc1 minutes Route: IV; Rate: 1 bolus; Site: left antecubital; 08:32 Follow up: IV Status: Completed infusion; IV Intake: 1000ml ap3 Disposition Summary: 03/05/25 08:22 Discharge Ordered Notes: Location: Home ms3 Condition: Stable ms3 Diagnosis - Chest pain, unspecified ms3 - Elevated blood-pressure reading, without diagnosis of hypertension ms3 - Abdominal pain, unspecified ms3 Followup: ms3 - With: Gilberto Johnson MD - When: 2 - 3 days - Reason: Recheck today's complaints Discharge Instructions: - Discharge Summary Sheet ms3 - Abdominal Pain, Adult ms3 - Nonspecific Chest Pain, Adult ms3 Forms: - Medication Reconciliation Form ms3 - Antibiotic Education ms3 - Prescription Opioid Use ms3 - Patient Portal Instructions ms3 - Leadership Thank You Letter ms3 Signatures: Dispatcher [employer] EDMS Karson Lainez DO DO ms3 Sahara Chow RN RN vc1 Miah Beltran RN RN jj7 Apollo Owusu MD MD sp4 Susi Brooks RN ap3 Corrections: (The following items were deleted from the chart) 06:23 06:23 CBC+H.LAB.BRZ ordered. EDMS EDMS 06:23 06:23 COMPREHENSIVE METABOLIC PANEL+C.LAB.BRZ ordered. EDMS EDMS 06:23 06:23 LIPASE+C.LAB.BRZ ordered. EDMS EDMS 06:23 06:23 PROBNP+C.LAB.BRZ ordered. EDMS EDMS 06:23 06:23 Troponin High Sensitivity+C.LAB.BRZ ordered. EDMS EDMS
[2025-03-05 15:21] VITALS: BP 143/95; TEMP 98.7; O2SAT 100
== END 2025-03-05 08:32 | disposition home or self-care (01) ==
LOC: ER 06:00
DX: R07.9 Chest pain, unspecified (principal); R03.0 Elevated blood-pressure reading, without diagnosis of hypertension; R10.9 Unspecified abdominal pain
CPT/HCPCS: 93005; 85025; 36415; 82565; 84443; 84484; 84439; 83690; 80053; 83880; 71260; 74177; Q9967; J7030; 96360; 96361; 99284